=== PATIENT | female | born 1960 | race Caucasian/White ===

== ENCOUNTER 2018-03-02 09:39 | Emergency (ER) | payer OTHER ==
[~2018-03-02] VITALS: Ht 157.5 cm; Wt 59.0 kg
--- NOTE | 2018-03-02 10:13 | PHYS DOC ---
Adult General Chief Complaint Chief Complaint: HEADACHE HPI HPI Patient is a 57 year old female with history of arthritis, hypertension, who presents today complaining of a 9 out of 10 left parietal headache that began yesterday. Patient describes the pain as throbbing and intermittent. Patient denies anything relieving the pain. She states the pain is exacerbated by touching the area. Patient states she was diagnosed with arthritis by the PCP recently due to chronic bone pain. She states she still has the pain. She rates the pain the same as the headache. She states she's had 5 falls in the last 1 month, she states she resides at home with her . Patient denies any loss of consciousness when she fell. Mother is in the ED was concerned patient could have an aneurysm and would like patient to be checked for 1. Review of Systems Review of Systems Constitutional: Denies fever or chills [] Eyes: Denies change in visual acuity, redness, or eye pain [] HENT: Denies nasal congestion or sore throat [] Respiratory: Denies cough or shortness of breath [] Cardiovascular: No additional information not addressed in HPI [] GI: Denies abdominal pain, nausea, vomiting, bloody stools or diarrhea [] : Denies dysuria or hematuria [] Musculoskeletal: Reports chronic bone pain/arthritis. Denies back pain Integument: Denies rash or skin lesions [] Neurologic: Reports headache, denies focal weakness or sensory changes [] All other systems were reviewed and found to be within normal limits, except as documented in this note. Current Medications Current Medications Current Medications Medications (Trade) Dose Ordered Sig/Austen Start Time Stop Time Status Last Admin Dose Admin Dexamethasone Sodium Phosphate (Decadron) 10 mg 1X ONCE 03/02/18 10:15 03/02/18 11:55 DC 03/02/18 11:45 10 MG Diazepam (Valium) 5 mg 1X ONCE 03/02/18 14:00 03/02/18 14:01 DC Sodium Chloride 1,000 ml @ 1,000 mls/hr 1X ONCE 03/02/18 10:15 03/02/18 11:55 DC 03/02/18 11:57 1,000 MLS/HR Allergies Allergies Allergies Coded Allergies Type Severity Reaction Last Updated Verified No Known Drug Allergies 03/02/18 No Physical Exam Physical Exam Constitutional: Well developed, well nourished, no acute distress, non-toxic appearance. [] HENT: Normocephalic, atraumatic, bilateral external ears normal, oropharynx moist, no oral exudates, nose normal. [] Eyes: PERRLA, EOMI, conjunctiva normal, no discharge. [] Neck: Normal range of motion, no tenderness, supple, no stridor. [] Cardiovascular:Heart rate regular rhythm, no murmur [] Lungs & Thorax: Bilateral breath sounds clear to auscultation [] Abdomen: Bowel sounds normal, soft, no tenderness, no masses, no pulsatile masses. [] Skin: Warm, dry, no erythema, no rash. [] Back: No tenderness, no CVA tenderness. [] Extremities: No tenderness, no cyanosis, no clubbing, ROM intact, no edema. [] Neurologic: Alert and oriented X 3, normal motor function, normal sensory function, no focal deficits noted. Appears mentally slow but answers questions correctly. Cranial nerves II through XII intact Psychologic: Affect normal, judgement normal, mood normal. [] Current Patient Data Vital Signs Vital Signs Date Time Temp Pulse Resp B/P (MAP) Pulse Ox O2 Delivery O2 Flow Rate FiO2 03/02/18 09:47 98.4 66 16 141/70 (93) 98 Room Air 98.4 Lab Values Laboratory Tests Test 03/02/18 11:20 03/02/18 13:21 White Blood Count 3.8 x10^3/uL (4.0-11.0) L Red Blood Count 4.15 x10^6/uL (3.50-5.40) Hemoglobin 13.0 g/dL (12.0-15.5) Hematocrit 37.4 % (36.0-47.0) Mean Corpuscular Volume 90 fL (79-100) Mean Corpuscular Hemoglobin 31 pg (25-35) Mean Corpuscular Hemoglobin Concent 35 g/dL (31-37) Red Cell Distribution Width 14.4 % (11.5-14.5) Platelet Count 184 x10^3/uL (140-400) Neutrophils (%) (Auto) 50 % (31-73) Lymphocytes (%) (Auto) 42 % (24-48) Monocytes (%) (Auto) 8 % (0-9) Eosinophils (%) (Auto) 0 % (0-3) Basophils (%) (Auto) 0 % (0-3) Neutrophils # (Auto) 1.9 x10^3uL (1.8-7.7) Lymphocytes # (Auto) 1.6 x10^3/uL (1.0-4.8) Monocytes # (Auto) 0.3 x10^3/uL (0.0-1.1) Eosinophils # (Auto) 0.0 x10^3/uL (0.0-0.7) Basophils # (Auto) 0.0 x10^3/uL (0.0-0.2) Sodium Level 146 mmol/L (136-145) H Potassium Level 3.6 mmol/L (3.5-5.1) Chloride Level 108 mmol/L (98-107) H Carbon Dioxide Level 31 mmol/L (21-32) Anion Gap 7 (6-14) Blood Urea Nitrogen 8 mg/dL (7-20) Creatinine 0.7 mg/dL (0.6-1.0) Estimated GFR (Cockcroft-Gault) 85.6 Glucose Level 89 mg/dL (70-99) Calcium Level 8.5 mg/dL (8.5-10.1) Urine Collection Type Unknown Urine Color Yellow Urine Clarity Clear Urine pH 7.5 Urine Specific [place] 1.010 Urine Protein Negative mg/dL (NEG-TRACE) Urine Glucose (UA) Negative mg/dL (NEG) Urine Ketones (Stick) Negative mg/dL (NEG) Urine Blood Trace (NEG) Urine Nitrite Negative (NEG) Urine Bilirubin Negative (NEG) Urine Urobilinogen Dipstick 0.2 mg/dL (0.2 mg/dL) Urine Leukocyte Esterase Negative (NEG) Urine RBC 3-5 /HPF (0-2) Urine WBC Rare /HPF (0-4) Urine Squamous Epithelial Cells Occ /LPF Urine Bacteria Few /HPF (0-FEW) Laboratory Tests 03/02/18 11:20 Laboratory Tests 03/02/18 11:20 EKG EKG [] Radiology/Procedures Radiology/Procedures []PROCEDURE: CT HEAD WO CONTRAST PQRS Compliance Statement: One or more of the following individualized dose reduction techniques were utilized for this examination: 1. Automated exposure control 2. Adjustment of the mA and/or kV according to patient size 3. Use of iterative reconstruction technique CT HEAD WITHOUT CONTRAST History: HEADACHE. Comparison: CT head without contrast, August 04, 2011. Procedure: Axial images are obtained of the head from the skull base through the vertex without IV contrast. Findings: The ventricles and sulci are normal for the patient's age. No mass-effect, midline shift, hemorrhage, extra-axial fluid collection, or obvious acute infarction is identified. Basilar cisterns are patent. Bone windows demonstrate no acute calvarial abnormality. The visualized paranasal sinuses are clear. Mastoid air cells are well aerated. IMPRESSION: No acute intracranial abnormality. Electronically signed by: Caesar Kat MD (03/02/2018 11:27 AM) [id number] DICTATED and SIGNED BY: CAESAR KAT MD DATE: 03/02/18 1121 Course & Med Decision Making Course & Med Decision Making Pertinent Labs and Imaging studies reviewed. (See chart for details) This is a 57-year-old female patient presented to the ED today with a headache intermittently since yesterday, frequent falls (5 in the last 1 month) and chronic bone pain from arthritis. CBC with a WBC of 3.8, patient does not know her baseline. BMP with no acute findings, urine analysis is negative for infection, CT of the head is negative for any acute findings. Patient is in no distress, was given a liter of fluid as well as Decadron. She is in no distress. She was discharged with instructions to follow-up with her own PCP in the course of this week or next week. Discharged with diclofenac and cyclobenzaprine. Provided return precautions. Dragon Disclaimer Dragon Disclaimer This electronic medical record was generated, in whole or in part, using a voice recognition dictation system. Departure Departure Impression: Primary Impression: Headache Additional Impressions: Fall Arthritis Disposition: 01 HOME, SELF-CARE Condition: STABLE Referrals: Berenice HAND MD (PCP) follow up in one week Patient Instructions: General Headache Without Cause, Headache and Arthritis Additional Instructions: You were evaluated in the emergency room for a headache, falls and arthritis. Take the prescribed medications as ordered. Follow-up with your doctor in the course of this week or next week. Scripts Diclofenac Sodium (DICLOFENAC SODIUM) 50 Mg Tablet. 1 TAB PO BID, #20 TAB 0 Refills Prov: NERYASRIDEVI APRN 03/02/18 Cyclobenzaprine Hcl (CYCLOBENZAPRINE HCL) 10 Mg Tablet 1 TAB PO TID, #30 TAB Prov: MUTUNGA,SRIDEVI [employer]ING [employer] MECH[employer]IC 03/02/18 Problem Qualifiers Primary Impression: Headache Headache type: unspecified Headache chronicity pattern: acute headache Intractability: not intractable Qualified Codes: R51 - Headache Additional Impressions: Fall Encounter type: initial encounter Qualified Codes: W19.XXXA - Unspecified fall, initial encounter LUCYSRIDEVI NAYAK [employer]ING R[employer] MECH[employer]IC Mar 02, 2018 10:13
[2018-03-02] MEDS ORDERED: DEXAMETHASONE SOD PHOS 20 MG/5 ML VIAL. IV ONE (10:15)
[2018-03-02] MEDS ORDERED: IV NORMAL SALINE 1000ML BAG 1,000 ML IV ONE (10:15)
--- NOTE | 2018-03-02 11:30 | RAD ---
PQRS Compliance Statement: One or more of the following individualized dose reduction techniques were utilized for this examination: 1. Automated exposure control 2. Adjustment of the mA and/or kV according to patient size 3. Use of iterative reconstruction technique CT HEAD WITHOUT CONTRAST History: HEADACHE. Comparison: CT head without contrast, August 04, 2011. Procedure: Axial images are obtained of the head from the skull base through the vertex without IV contrast. Findings: The ventricles and sulci are normal for the patient's age. No mass-effect, midline shift, hemorrhage, extra-axial fluid collection, or obvious acute infarction is identified. Basilar cisterns are patent. Bone windows demonstrate no acute calvarial abnormality. The visualized paranasal sinuses are clear. Mastoid air cells are well aerated. IMPRESSION: No acute intracranial abnormality. Electronically signed by: Caesar Daniels MD (03/02/2018 11:27 AM) [id number]
[2018-03-02 11:31] LABS: BASO % 0 % (0-3); EOS % 0 % (0-3); HEMATOCRIT 37.4 % (36.0-47.0); LYMPH # 1.6 x10^3/uL (1.0-4.8); LYMPH % 42 % (24-48); MEAN CORPUSCULAR HEMOGLOBIN 31 pg (25-35); MEAN CORPUSCULAR HGB CONC 35 g/dL (31-37); MEAN CORPUSCULAR VOLUME 90 fL (79-100); MONO # 0.3 x10^3/uL (0.0-1.1); MONO % 8 % (0-9); NEUT # 1.9 x10^3uL (1.8-7.7); NEUT % 50 % (31-73); PLATELET COUNT 184 x10^3/uL (140-400); RED BLOOD COUNT 4.15 x10^6/uL (3.50-5.40); RED CELL DISTRIBUTION WIDTH 14.4 % (11.5-14.5); WHITE BLOOD COUNT 3.8 x10^3/uL (4.0-11.0)
[2018-03-02 11:39] LABS: CALCIUM 8.5 mg/dL (8.5-10.1); CREATININE 0.7 mg/dL (0.6-1.0); GFR 85.6; POTASSIUM 3.6 mmol/L (3.5-5.1)
[2018-03-02 13:30] VITALS: BP 124/62
[2018-03-02 13:46] LABS: BILIRUBIN,URINE NEGATIVE (NEG); CLARITY,URINE CLEAR; COLOR,URINE YELLOW; NITRITE,URINE NEGATIVE (NEG); PH,URINE 7.5; PROTEIN,URINE NEGATIVE (NEG-TRACE); UROBILINOGEN,URINE 0.2 mg/dL (0.2 mg/dL)
[2018-03-02 13:54] LABS: BACTERIA,URINE FEW /HPF (0-FEW); SQUAMOUS EPITHELIAL CELL,UR OCC /LPF; WBC,URINE RARE /HPF (0-4)
[2018-03-02] MEDS ORDERED: diazePAM 5 MG TABLET PO ONE (14:00)
[2018-03-02] MEDS ORDERED: CYCL10TA2 PO (14:08)
[2018-03-02] MEDS ORDERED: DICL50TA4 PO (14:08)
== END 2018-03-02 14:17 | disposition home or self-care (01) ==
LOC: ER 09:39
DX: R51 Headache (principal); I10 Essential (primary) hypertension; M19.90 Unspecified osteoarthritis, unspecified site; M89.8X9 Other specified disorders of bone, unspecified site; G89.29 Other chronic pain
CPT/HCPCS: 36415; 70450; 80048; 81001; 85025; 96374; 99285; J1100; J7030

== ENCOUNTER → 2018-12-17 | Outpatient (CLI) | payer OTHER ==
[2018-11-23 14:17] VITALS: BP 164/71
[~2018-12-17] MED LIST: CYCL10TA2 PO; DICL50TA4 PO
--- NOTE | 2018-12-17 16:35 | RAD ---
Examination: Ultrasound left lateral upper calf HISTORY: History of contusion left leg COMPARISON: None available. Findings/ impression: There is a large heterogeneous fluid collection identified in the left lateral upper calf measuring 6.0 x 4.5 x 1.1 cm probably a hematoma, given the history. Recommend follow-up exam to document stability or resolution. Electronically signed by: Felix De La Paz MD (12/17/2018 4:31 PM) [id number]
== END | disposition home or self-care (01) ==
LOC: US 15:00
PROVIDERS: ATTEND Family Medicine
DX: S70.12XD Contusion of left thigh, subsequent encounter (principal); X58.XXXD Exposure to other specified factors, subsequent encounter
CPT/HCPCS: 76882

== ENCOUNTER → 2020-12-18 | Outpatient (CLI) | payer OTHER ==
[2018-11-23 14:17] VITALS: BP 164/71
--- NOTE | 2020-12-18 16:07 | KCIC ---
Left wrist left wrist 3 views: Reason for examination: Acute neck and wrist pain after fall one week ago. To previous examination There appears be a small ossific density off the tip of the olecranon which may represent a small avu lsion fracture from the olecranon. No other site of fracture or dislocation is seen. Bone density is normal. No abnormal periosteal reaction is seen. Joint spaces are maintained. IMPRESSION: Small ossific density off the tip of olecranon which could represent an avulsion fracture chronicity is unknown. Cervical spine 4 views: The vertebral bodies of the cervical spine are normally aligned anteriorly and posteriorly. No acute fracture or subluxation is seen. The odontoid process appears to be intact and normally centered betw een the lateral masses of C1. The posterior elements appear to be intact. The intervertebral discs ap pear to be fairly well-maintained. Prevertebral soft tissues are normal. IMPRESSION: No acute abnormality evident in the cervical spine. Electronically signed by: Janis Vogel MD (12/18/2020 4:05 PM) MARY
== END ==
LOC: KCIC 14:22
PROVIDERS: ATTEND Family Medicine
DX: S66.912A Strain of unspecified muscle, fascia and tendon at wrist and hand level, left hand, initial encounter (principal); M54.2 Cervicalgia; X58.XXXA Exposure to other specified factors, initial encounter; Y93.89 Activity, other specified; Y92.89 Other specified places as the place of occurrence of the external cause; Y99.8 Other external cause status
CPT/HCPCS: 72040; 73110

== ENCOUNTER 2021-06-06 18:49 | Emergency (ER) | payer OTHER ==
[~2021-06-06] VITALS: Ht 162.6 cm; Wt 72.6 kg
[~2021-06-06 18:49] MED LIST changes: +CYCL10TA19 PO; -CYCL10TA2 PO
--- NOTE | 2021-06-06 20:06 | PHYS DOC ---
Past Medical History Past Medical History: Depression, GERD, High Cholesterol, Hypertension (GAYLA TADEO APRN) Past Surgical History: Other Additional Past Surgical Histo: LASIX EYES, BREAST LUMP LEFT SIDE (GAYLA TADEO APRN) Smoking Status: Current Every Day Smoker Alcohol Use: None Drug Use: None (GAYLA TADEO APRN) General Adult EDM: Chief Complaint: FOOT INJURY PAIN HPI: HPI: Patient is a 61-year-old female that presents today with right foot pain. Patient states that yesterday she was outside cleaning off her railings and cleaning off her deck and she slipped and fell injuring her right foot. She sta teresa she is unable to walk on it, and she is here for evaluation. (GAYLA TADEO APRN) Review of Systems: Review of Systems: Constitutional: Denies fever or chills. [] Eyes: Denies change in visual acuity. [] HENT: Denies nasal congestion or sore throat. [] Respiratory: Denies cough or shortness of breath. [] Cardiovascular: Denies chest pain or edema. [] GI: Denies abdominal pain, nausea, vomiting, bloody stools or diarrhea. [] : Denies dysuria. [] Musculoskeletal: Right foot pain denies back pain or joint pain. [] Integument: Denies rash. [] Neurologic: Denies headache, focal weakness or sensory changes. [] Endocrine: Denies polyuria or polydipsia. [] Lymphatic: Denies swollen glands. [] Psychiatric: Denies depression or anxiety. [] (GAYLA TADEO APRN) Heart Score: C/O Chest Pain: N/A Risk Factors: Risk Factors: DM, Current or recent (<one month) smoker, HTN, HLP, family history of CAD, obesity. Risk Scores: Score 0 - 3: 2.5% MACE over next 6 weeks - Discharge Home Score 4 - 6: 20.3% MACE over next 6 weeks - Admit for Clinical Observation Score 7 - 10: 72.7% MACE over next 6 weeks - Early Invasive Strategies (GAYLA TADEO APRN) Current Medications: Home medication Patient does take meloxicam on a daily basis and in the evenings (GAYLA TADEO APRN) Allergies: Allergies: Allergies Coded Allergies Type Severity Reaction Last Updated Verified No Known Drug Allergies 06/06/21 No (GAYLA TADEO APRN) Physical Exam: PE: Constitutional: Well developed, well nourished, no acute distress, non-toxic appearance. [] HENT: Normocephalic, atraumatic, bilateral external ears normal, oropharynx moist, no oral exudates, nose normal. [] Eyes: PERRLA, EOMI, conjunctiva normal, no discharge. [] Neck: Normal range of motion, no tenderness, supple, no stridor. [] Cardiovascular:Heart rate regular rhythm, no murmur [] Lungs & Thorax: Bilateral breath sounds clear to auscultation [] Abdomen: Bowel sounds normal, soft, no tenderness, no masses, no pulsatile masses. [] Skin: Warm, dry, no erythema, no rash. [] Back: No tenderness, no CVA tenderness. [] Extremities: Right foot pain with tenderness over the ball of the foot over the distal end of the medical tarsals, patient able to move her toes and her foot, no swelling, no ecchymosis, no contusion, no lacerations noted to the right foot, dorsalis pedis pulse 2+, sensory is intact distal to the injury, cap refill less than 2 seconds Neurologic: Alert and oriented X 3, normal motor function, normal sensory function, no focal deficits noted. [] Psychologic: Affect normal, judgement normal, mood normal. [] (AGYLA TADEO APRN) Current Patient Data: Vital Signs: Vital Signs Date Time Temp Pulse Resp B/P (MAP) Pulse Ox O2 Delivery O2 Flow Rate FiO2 06/06/21 19:10 98.0 56 16 106/57 (73) 94 Room Air 98.0 (GAYLA TADEO APRN) EKG: EKG: [] (GAYLA TADEO APRN) Radiology/Procedures: Radiology/Procedures: REASON: foot pain after fall PROCEDURE: FOOT RIGHT 3V Right foot x-rays 3 views HISTORY: Right foot pain after a fall. FINDINGS: Osteoarthritis with mild joint space loss and mild bony spurring of the first MTP joint. Spur of the plantar calcaneus. No bone lesion. No fracture or dislocation. Soft tissues are normal. IMPRESSION: No acute osseous injury. Electronically signed by: Romario Diehl MD (06/06/2021 8:20 PM) [facility] (GAYLA TADEO APRN) Course & Med Decision Making: Course & Med Decision Making Pertinent Labs and Imaging studies reviewed. (See chart for details) Reviewing patient's radiological findings there is nothing acute noted. Will place patient in postop shoe and Dong wrap, will have her continue to take her home meloxicam for pain, will have her follow-up with her primary care physician in 3 to 5 days or with orthopedic doctor that is listed in the referral section for further management of her right foot pain. And will instruct patient to ice 20 minutes on 3-4 times daily and to elevate. (GAYLA TADEO APRN) Course & Med Decision Making I was the Attending physician on the above date of service of this patient. This patient was evaluated, examined, treated, and dispositioned from the emergency department by the mid-level practitioner. Although I was working at the time , no assistance was requested. Electronically signed, Vickey Martinez DO (VICKEY MARTINEZ DO) Mark Disclaimer: Mark Disclaimer: This electronic medical record was generated, in whole or in part, using a voice recognition dictation system. (GAYLA TADEO APRN) Departure Departure Impression: Primary Impression: Sprain of foot, right Qualified Codes: S93.601A - Unspecified sprain of right foot, initial encounter Disposition: HOME / SELF CARE / HOMELESS Condition: STABLE Referrals: Berenice NAVAS MD (PCP) KRISTIAN KIMBROUGH II, MD Patient Instructions: Foot Sprain, RICE - Routine Care for Injuries Additional Instructions: Dong wrap and postop shoe for comfort and ambulation. Continue with home meloxicam for pain control Tylenol as needed per label directed for pain Ice 20 minutes on 3-4 times daily Follow-up with your primary care physician Dr. Navas or follow-up with Dr. Kimbrough for further management of your pain GAYLA TADEO APRN Jun 06, 2021 20:06 VICKEY MARTINEZ DO Jun 11, 2021 07:32
--- NOTE | 2021-06-06 20:22 | RAD ---
Right foot x-rays 3 views HISTORY: Right foot pain after a fall. FINDINGS: Osteoarthritis with mild joint space loss and mild bony spurring of the first MTP joint. Sp ur of the plantar calcaneus. No bone lesion. No fracture or dislocation. Soft tissues are normal. IMPRESSION: No acute osseous injury. Electronically signed by: Romario Diehl MD (06/06/2021 8:20 PM) [facility]
[2021-06-06 20:50] VITALS: BP 112/59
== END 2021-06-06 20:46 | disposition home or self-care (01) ==
LOC: ER 18:49
DX: S93.601A Unspecified sprain of right foot, initial encounter (principal); K21.9 Gastro-esophageal reflux disease without esophagitis; E78.00 Pure hypercholesterolemia, unspecified; I10 Essential (primary) hypertension; F17.200 Nicotine dependence, unspecified, uncomplicated; W01.0XXA Fall on same level from slipping, tripping and stumbling without subsequent striking against object, initial encounter; Y93.89 Activity, other specified; Y92.89 Other specified places as the place of occurrence of the external cause; Y99.8 Other external cause status
CPT/HCPCS: 73630; 99283; A6450